=== PATIENT | female | born 1940 | race Caucasian/White ===

== ENCOUNTER 2016-05-25 09:45 | Outpatient (CLI) | payer MEDICARE, OTHER ==
[2016-01-22 14:33] VITALS: BP 124/78
--- NOTE | 2016-05-25 13:40 | Diagnostic Imaging Report ---
[facility] [address] [facility].[address] [id number] Report Submission Date: May 25, 2016 12:05:17 PM [employer]BER Patient Study Name: BRANT SUAREZ Date: May 25, 2016 9:54:57 AM [employer]BER Modality Type: CR Gender: F Description: LOWER EXTREMITY : 40 Institution: [facility] Physician: HARRY ROMERO Left foot - three views Clinical history: Pain at the base of the fifth metatarsal for 3 days. Findings: Examination of the left foot in plantar, lateral and oblique views demonstrates degenerative changes with narrowing of the interphalangeal joints and the first metatarsophalangeal joint. There is no evident fracture and no lytic or blastic lesion. Calcaneal spurs are seen on the lateral view. Impression: 1. Degenerative changes. 2. No fracture. Electronically signed on May 25, 2016 12:05:17 PM [employer] MEMBER by: Evaristo CLAIRE
== END 2016-05-25 09:46 ==
LOC: RAD 09:45
PROVIDERS: ATTEND Family Medicine
DX: M89.8X7 Other specified disorders of bone, ankle and foot (principal)
CPT/HCPCS: 73630

== ENCOUNTER 2017-07-20 15:33 | Outpatient (CLI) | payer MEDICARE, OTHER ==
[2016-01-22 14:33] VITALS: BP 124/78
--- NOTE | 2017-07-20 19:14 | Diagnostic Imaging Report ---
NICK MCDON[facility] [address] [facility] [address] [place], [place]. [address] Report Submission Date: Jul 20, 2017 4:16:57 PM [employer] SAL[employer] CONSULTANT Patient Study Name: BRANT SUAREZ Date: Jul 20, 2017 3:47:00 PM [employer] SAL[employer] CONSULTANT Modality Type: CT\SR Gender: F Description: CT HEAD W/O CONTRAST : 40 Institution: [facility] Physician: NICK MCDONALD Examination: CT head without contrast History: CT HEAD W/O CONTRAST, NEW ONSET OF HEADACHES, FOR ABOUT 3 WEEKS (Hx) / NEW ONSET OF HEADACHES (DICOM Hx) Comparison exam: None available Technique: Noncontrast head CT protocol. Findings: Ventricles and sulci are mildly prominent, though consistent for patient age. Cerebrocerebellar parenchyma demonstrates periventricular low attenuation consistent with small vessel disease. No evidence for parenchymal hemorrhage. No evidence for mass or mass effect. No midline shift. No extra axial fluid collections. Partial visualization of the paranasal sinuses demonstrates bilateral maxillary sinus air-fluid levels. Mastoid air cells, orbits, skull and scalp without gross irregularity. Impression: Age related changes. No acute parenchymal process. No hemorrhage. Electronically signed on Jul 20, 2017 4:16:57 PM [employer] SALES CONSULTANT by: Joseluis CLAIRE
== END 2017-07-20 15:34 ==
LOC: RAD 15:33
PROVIDERS: ATTEND Family Medicine
DX: R51 Headache (principal)
CPT/HCPCS: 70450

== ENCOUNTER 2017-11-17 08:49 | Outpatient (CLI) | payer MEDICARE, OTHER ==
[2016-01-22 14:33] VITALS: BP 124/78
== END 2017-11-17 08:50 ==
LOC: LAB 08:49
PROVIDERS: ATTEND Internal Medicine Cardiovascular Disease
DX: E78.4 Other hyperlipidemia (principal); R79.9 Abnormal finding of blood chemistry, unspecified
CPT/HCPCS: 36415; 82310; 83970; 84439; 84481

== ENCOUNTER 2018-10-26 08:38 | Outpatient (CLI) | payer MEDICARE, OTHER ==
[2016-01-22 14:33] VITALS: BP 124/78
[2018-11-13 13:39] LABS: eGFR (Non-African) > 60
[2018-11-13 13:40] LABS: A1C 5.6 % (-5.7); HDL 38 mg/dL (>40)
[2018-11-13 13:41] LABS: BASOPHILS % 0.5 % (0.0-1.5); NEUTROPHILS # 3.8 # k/uL (1.4-7.7)
== END 2018-10-26 08:43 | disposition home or self-care (01) ==
LOC: LAB 08:38
PROVIDERS: ATTEND Internal Medicine Cardiovascular Disease
DX: E11.9 Type 2 diabetes mellitus without complications (principal); I10 Essential (primary) hypertension; I48.2 Chronic atrial fibrillation; E55.9 Vitamin D deficiency, unspecified
CPT/HCPCS: 36415; 80053; 80061; 82306; 83036; 84443; 85025